=== PATIENT | female | born 1965 | race Caucasian/White ===

== ENCOUNTER 2017-03-05 17:35 | Emergency (ER) | payer SELFPAY ==
[2017-03-05] MEDS ORDERED: traMADol HCl 50 MG TAB ONE (19:00)
[2017-03-05] MEDS ORDERED: Ibuprofen 800 MG TAB ONE (19:01)
--- NOTE | 2017-03-05 19:45 | RAD ---
LEFT KNEE FOUR VIEWS: 03/05/17 No fracture or joint effusion was appreciated. The patella appears intact. There is some mild degene rative changes consisting of osteophytes and very slight medial joint space narrowing. IMPRESSION: No acute bony finding. POS: HOME
== END 2017-03-05 19:08 | disposition home or self-care (01) ==
LOC: BURERS 17:35
DX: S80.02XA Contusion of left knee, initial encounter (principal); W18.30XA Fall on same level, unspecified, initial encounter

== ENCOUNTER 2017-06-06 11:52 | Emergency (ER) | payer SELFPAY ==
[~2017-06-06 11:52] MED LIST: Iopamidol 370 76% 100 ML VIAL ONE
[2017-06-06 12:40] LABS: #Basophils 0.1 thou/uL (0.0-0.2); #Lymphocytes 1.5 thou/uL (1.20-3.40); #Monocytes 0.4 thou/uL (0.11-0.59); #Neutrophils 4.6 thou/uL (1.40-6.50); %Eosinophils 0.7 % (0.0-10.0); %Monocytes 6.6 % (0.0-10.0); %Neutrophils 68.8 % (42.0-75.0); Hemoglobin 13.3 g/dL (12.0-16.0); Mean Corpuscular HGB CONC 33.2 g/dL (32.0-36.0); Mean Corpuscular Hemoglobin 31.3 pg (27.0-31.0); Mean Corpuscular Volume 94.4 fl (81.0-99.0); Mean Platelet Volume 7.5 fL (7.4-10.4); Platelet Count 198 thou/uL (130-400); Red Blood Cell (RBC) Count 4.25 mill/uL (4.20-5.40); White Blood Cell (WBC) Count 6.6 thou/uL (4.8-10.8)
[2017-06-06] MEDS ORDERED: Ketorolac Tromethamine 30 MG/ML VIAL ONE (12:46)
[2017-06-06] MEDS ORDERED: Ondansetron HCl/PF 4 MG/2 ML Vial ONE (12:46)
[2017-06-06 12:49] LABS: ALT (SGPT) 13 U/L (8-55); AST (SGOT) 22 U/L (5-34); Albumin 3.9 g/dL (3.5-5.0); Alkaline Phosphatase 71 U/L (40-150); Anion Gap 14 mmol/L (10-20); BUN (Urea Nitrogen) 7 mg/dL (7.0-18.7); Bilirubin, Total 0.5 mg/dL (0.2-1.2); Calc. Creatinine Clearance 0 mL/min (70-130); Calcium 8.6 mg/dL (7.8-10.44); Carbon Dioxide 24 mmol/L (22-29); Chloride 106 mmol/L (98-107); Estimated GFR-MDRD 62; Globulin 3.4 g/dL (2.4-3.5); Glucose 107 mg/dL (70-105); Potassium 3.8 mmol/L (3.5-5.1); Protein, Total 7.3 g/dL (6.0-8.3); Sodium 140 mmol/L (136-145)
[2017-06-06] MEDS ORDERED: traMADol HCl 50 MG TAB ONE (15:09)
[2017-06-06 15:33] LABS: BHCG - Serum Negative (NEGATIVE); Pregs Control Background? CLEAR/WHITE (CLR/WHITE); Pregs Control Bar Appear? YES (CONTROL BAR)
--- NOTE | 2017-06-06 15:41 | RAD ---
PORTABLE CHEST: Date: 06/06/17 An AP portable film at 1252 hours is compared with the 07/12/16 study. FINDINGS: The heart and mediastinum appear normal. The lungs are clear. No infiltrate or effusion seen. An old , healed left clavicular fracture was noted. No other fractures seen. IMPRESSION: No acute thoracic findings. POS: HOME
--- NOTE | 2017-06-06 15:44 | CT ---
CT OF THE BRAIN WITHOUT CONTRAST: Date: 06/06/[address] was performed following trauma. FINDINGS: The ventricles are normal in size with no shift. No intracranial bleeding or extra-axial hematoma se en. No sign of mass, stroke, or edema. Calvarium appears intact. The visible paranasal sinuses are c lear, as is the sphenoid sinus. IMPRESSION: No acute intracranial finding. POS: HOME
--- NOTE | 2017-06-06 15:45 | CT ---
CT CERVICAL SPINE: Date: 06/06/17 Axial slices were acquired, then coronal and sagittal reconstructions were done. FINDINGS: There is loss of the normal cervical lordosis, which may be due to muscle spasm. There is disc space narrowing at C5-C6. No central canal or foraminal stenosis seen at any level. The C1 to dens distan ce is normal and the soft tissues are normal in thickness. The neural foramina all appear patent. IMPRESSION: Loss of normal cervical lordosis. No acute findings otherwise. POS: HOME
--- NOTE | 2017-06-06 15:47 | CT ---
CT ABDOMEN AND PELVIS WITH CONTRAST: Date: 06/06/[address] of the abdomen and pelvis was performed for evaluation following trauma. Axial slices were acquired after giving IV contrast. Castellanos reconstructions were subsequently done. FINDINGS: The lung bases are clear. The liver, spleen, pancreas, gallbladder, adrenal glands, and kidneys all appear intact. No sign of laceration or hematoma in any organ. Abdominal aorta normal in caliber. Ki dneys show no obstruction. Abdomen showed no free air or free fluid. The bowel is nondistended with no sign of obstruction, wal l thickening, or other acute changes. CT of the pelvis showed no pelvic masses, fluid collections of concern, or other acute pathology. De generative change are present in the lumbar spine, which are particular bad in the facet joints of t he lower lumbar spine on the right side. IMPRESSION: No acute traumatic changes in the abdomen or pelvis. POS: HOME
== END 2017-06-06 15:49 | disposition home or self-care (01) ==
LOC: BURERS 11:52
DX: S16.1XXA Strain of muscle, fascia and tendon at neck level, initial encounter (principal); S39.012A Strain of muscle, fascia and tendon of lower back, initial encounter; F41.9 Anxiety disorder, unspecified; Y04.8XXA Assault by other bodily force, initial encounter
CPT/HCPCS: 70450; 71010; 72125; 74177; 80053; 84703; 85025; 96361; 96374; 96375; A4216; J1885; J2405

== ENCOUNTER 2017-10-14 13:23 | Emergency (ER) | payer SELFPAY ==
[2017-10-14] MEDS ORDERED: Cephalexin 500 MG CAP ONE (13:46)
[2017-10-14] MEDS ORDERED: Sulfameth/Trimethoprim DS 800-160mg TAB ONE (13:46)
== END 2017-10-14 13:51 | disposition home or self-care (01) ==
LOC: BURERS 13:23
DX: L03.211 Cellulitis of face (principal)
CPT/HCPCS: 99283

== ENCOUNTER 2018-10-29 16:11 | Emergency (ER) | payer SELFPAY ==
[2018-10-29] MEDS ORDERED: Ketorolac Tromethamine 60 MG/2 ML VIAL ONE (16:29)
--- NOTE | 2018-10-29 17:57 | RAD ---
RIGHT ANKLE 3 VIEWS: Date: 10/29/18 Marked soft tissue swelling is present, especially over the lateral malleolus. One of the three views suggests a small cortical break in the tip of the lateral malleolus, so an acute avulsion fracture i s suspected here. The oblique view shows irregularity along the interosseous margin of the distal fib shravan suggesting an old high ankle sprain may have occurred. A small calcaneal spur is present. IMPRESSION: Severe soft tissue swelling with presumed avulsion fracture at the tip of the lateral malleolus. CODE T. POS: HOME
== END 2018-10-29 17:27 | disposition home or self-care (01) ==
LOC: BURERS 16:11
DX: S82.64XA Nondisplaced fracture of lateral malleolus of right fibula, initial encounter for closed fracture (principal); F41.9 Anxiety disorder, unspecified; X50.9XXA Other and unspecified overexertion or strenuous movements or postures, initial encounter; Y93.02 Activity, running
CPT/HCPCS: 96372; J1885

== ENCOUNTER 2020-05-07 19:35 | Emergency (ER) | payer SELFPAY ==
[2020-05-07] MEDS ORDERED: Clindamycin 150 MG CAP ONE (19:53)
[2020-05-07] MEDS ORDERED: Ketorolac Tromethamine 60 MG/2 ML VIAL ONE (19:53)
== END 2020-05-07 20:15 | disposition home or self-care (01) ==
LOC: BURERS 19:35
DX: J34.0 Abscess, furuncle and carbuncle of nose (principal); F41.9 Anxiety disorder, unspecified
CPT/HCPCS: 96372; 99283; J1885

== ENCOUNTER 2021-01-16 22:59 | Emergency (ER) | payer SELFPAY | END 2021-01-17 00:02 | disposition home or self-care (01) | LOC: BURERS 22:59 | DX: M77.11 Lateral epicondylitis, right elbow (principal); L30.9 Dermatitis, unspecified | CPT/HCPCS: 99283 ==

== ENCOUNTER 2022-10-09 16:19 | Emergency (ER) | payer OTHER, SELFPAY | END 2022-10-09 17:44 | disposition home or self-care (01) | LOC: BURERS 16:19 | DX: S80.01XA Contusion of right knee, initial encounter (principal); X58.XXXA Exposure to other specified factors, initial encounter ==

== ENCOUNTER 2022-11-17 16:15 | Emergency (ER) | payer OTHER ==
[2022-11-17] MEDS ORDERED: Dexamethasone 10 MG/ML VIAL ONE (16:26)
== END 2022-11-17 16:40 | disposition home or self-care (01) ==
LOC: BURERS 16:15
DX: L30.9 Dermatitis, unspecified (principal)
CPT/HCPCS: 96372; 99283; J1100

== ENCOUNTER 2023-01-22 10:57 | Outpatient (CLI) | payer OTHER | END 2023-01-22 10:58 | disposition home or self-care (01) | LOC: BURRAD 10:57 | PROVIDERS: ATTEND Family Medicine | DX: M25.542 Pain in joints of left hand (principal); M25.541 Pain in joints of right hand; M19.042 Primary osteoarthritis, left hand ==